=== PATIENT | female | born 1985 | race Caucasian/White ===

== ENCOUNTER → 2024-06-02 | Outpatient (CLI) | payer BC ==
--- NOTE | 2024-06-03 10:32 | CA ---
Transthoracic Echo Report Name: Blanche Milner Age: 38 Gender: F : 1985 Exam Date: 06/02/2024 16:30 Exam Location: [place] [facility] Ht (in): 64 Wt (lb): 140 Ordering Physician: Emile Adan DO Attending/Referring Phys: Bailey Jackson PAC Rig Mechanic Frances Selby RDCS Procedure CPT: Indications: HX OF OTH DIS [id number] OTHER FATIG [id number] Cardiac Hx: Technical Quality: Fair Contrast 1: Total Dose (mL): Contrast 2: Total Dose (mL): MEASUREMENTS (Male / Female) Normal Values 2D ECHO LV Diastolic Diameter PLAX 4.6 cm 4.2 - 5.9 / 3.9 - 5.3 cm LV Systolic Diameter PLAX 3.2 cm IVS Diastolic Thickness 0.9 cm 0.6 - 1.0 / 0.6 - 0.9 cm LVPW Diastolic Thickness 0.7 cm 0.6 - 1.0 / 0.6 - 0.9 cm LV Relative Wall Thickness 0.4 RV Internal Dim ED PLAX 2.2 cm LA Systolic Diameter LX 2.9 cm 3.0 - 4.0 / 2.7 - 3.8 cm LV Diastolic Volume MOD BP 50.7 cm??? 67 - 155 / 56 - 104 cm??? LV Systolic Volume MOD BP 22.6 cm??? 22 - 58 / 19 - 49 cm??? LV Ejection Fraction MOD BP 55.5 % >= 55 % LV Cardiac Index MOD BP 990.3 cm???/min???m??? LV Diastolic Volume MOD 4C 60.3 cm??? LV Systolic Volume MOD 4C 26.1 cm??? LV Ejection Fraction MOD 4C 56.7 % LV Cardiac Index MOD 4C 1206.3 cm???/min???m??? LV Diastolic Length 4C 7.8 cm LV Systolic Length 4C 6.5 cm LV Diastolic Volume MOD 2C 37.8 cm??? LV Systolic Volume MOD 2C 18.9 cm??? LV Ejection Fraction MOD 2C 49.9 % LV Cardiac Index MOD 2C 666.2 cm???/min???m??? LV Diastolic Length 2C 6.9 cm LV Systolic Length 2C 6.3 cm LA Volume 42.6 cm??? 18 - 58 / 22 - 52 cm??? LA Volume Index 25.0 cm???/m??? 16 - 28 cm???/m??? M-MODE Aortic Root Diameter MM 2.3 cm LA Systolic Diameter MM 2.8 cm LA Ao Ratio MM 1.2 AV Cusp Separation MM 1.6 cm DOPPLER AV Peak Velocity 162.8 cm/s AV Peak Gradient 10.6 mmHg AV Mean Velocity 115.4 cm/s AV Mean Gradient 5.9 mmHg AV Velocity Time Integral 35.7 cm LVOT Peak Velocity 149.9 cm/s LVOT Peak Gradient 9.0 mmHg LVOT Velocity Time Integral 35.3 cm MV Area PHT 3.3 cm??? Mitral E Point Velocity 79.5 cm/s Mitral A Point Velocity 59.8 cm/s Mitral E to A Ratio 1.3 MV Deceleration Time 230.7 ms TR Peak Velocity 255.0 cm/s TR Peak Gradient 26.0 mmHg FINDINGS Left Ventricle Left ventricular ejection fraction is estimated at 55-60%. No obvious regional wall motion abnormalities. Left ventricular cavity size normal. Left ventricular wall thickness normal. Right Ventricle Normal right ventricular size and function. Right ventricular systolic pressure within normal limits. Right Atrium Normal right atrial size. Left Atrium Normal left atrial size. Mitral Valve Structurally normal mitral valve. Mild mitral regurgitation. No mitral stenosis. Aortic Valve Trileaflet aortic valve. No aortic valve stenosis or regurgitation. Tricuspid Valve Structurally normal tricuspid valve. Mild tricuspid regurgitation. No tricuspid stenosis. Pulmonic Valve Structurally normal pulmonic valve. No pulmonic stenosis. Trace pulmonic regurgitation. Pericardium No pericardial or pleural effusion. Aorta Normal size aortic root and proximal ascending aorta. CONCLUSIONS Left ventricular ejection fraction is estimated at 55-60%. Left ventricular wall thickness normal. No obvious regional wall motion abnormalities. No significant chamber size abnormality Mild MR and mild TR Previewed by: Dr Mikey Braun (Electronically Signed) Final Date: 03 June 2024 10:31
== END | disposition home or self-care (01) ==
LOC: RADECHMAIN 16:24
PROVIDERS: ATTEND Family Medicine
DX: R53.83 Other fatigue (principal); Z86.79 Personal history of other diseases of the circulatory system
CPT/HCPCS: 93306